=== PATIENT | female | born 1970 | race Caucasian/White ===

== ENCOUNTER 2020-12-21 19:13 | Emergency (ER) | payer MEDICAID ==
[~2020-12-21] VITALS: Ht 167.6 cm; Wt 79.4 kg
[2020-12-21 19:20] VITALS: BP 144/93; Ht 167.6 cm; Wt 79.4 kg
== END 2020-12-21 20:49 | disposition home or self-care (01) ==
LOC: ED 19:13
DX: M54.2 Cervicalgia (principal); H92.02 Otalgia, left ear; R51.9 Headache, unspecified
CPT/HCPCS: J1885

== ENCOUNTER 2021-01-26 12:26 | Emergency (ER) | payer OTHER ==
[~2021-01-26] VITALS: Ht 165.1 cm; Wt 79.4 kg
[2021-01-26 12:45] VITALS: Ht 165.1 cm; Wt 79.4 kg
[2021-01-26] MEDS ORDERED: SOMA350 MG PO (13:48)
[2021-01-26] MEDS ORDERED: ULTRAM50 MG PO (13:48)
[2021-01-26] MEDS ORDERED: NAPROXEN375 MG PO (13:48)
[2021-01-26 14:02] VITALS: BP 153/91
== END 2021-01-26 14:03 | disposition home or self-care (01) ==
LOC: ED 12:26
DX: S16.1XXA Strain of muscle, fascia and tendon at neck level, initial encounter (principal); M54.6 Pain in thoracic spine; X58.XXXA Exposure to other specified factors, initial encounter; Y93.89 Activity, other specified; Y92.89 Other specified places as the place of occurrence of the external cause; Y99.8 Other external cause status